=== PATIENT | male | born 1950 | race Caucasian/White ===

== ENCOUNTER → 2021-02-21 | Outpatient (CLI) | payer MEDICARE, OTHER ==
[~2021-02-21] MED LIST: ASPIRIN 32325 MG/TAB PO; LEVOXYL0.05 MG PO; LIPITOR20 MG PO; ONGLYZA5 MG PO; PRINZIDE 12.5 M1 TA1 PO; THE MEDICINE S200 M2 PO
== END ==
LOC: MC.RAD 11:59
DX: N62 Hypertrophy of breast (principal)